=== PATIENT | male | born 1995 | race African-American/Black ===

== ENCOUNTER 2019-03-21 20:34 | Emergency (ER) | payer OTHER ==
--- NOTE | 2019-03-21 20:39 | ED Physician Documentation ---
History of Present Illness - Stated complaint Stated Complaint: NOSE INJURY - Additonal information Additional information: This is a 23-year-old male who denies past medical history who presents with nose pain. Patient was playing football and another player's cheekbone impacted his nose several hours ago. Patient had some bleeding from the left side, he went home and tried to clean his nose and said he could feel the cartilage moving around, so he presented here for further evaluation. He denies any loss of consciousness, facial pain other than on his nose, vision changes, or neck pain. Review of Systems Constitutional: denies: Fever Eyes: denies: Loss of vision Nose: reports: Epistaxis Throat: denies: Sore throat PD PAST MEDICAL HISTORY - Past Medical History Past Medical History: No - Present Medications Home Medications: Ambulatory Orders Medication Instructions Recorded Confirmed Acetaminophen [Tylenol] 650 mg PO Q6H PRN #30 tab 03/21/19 Ibuprofen 600 mg PO Q6H PRN #30 tablet 03/21/19 - Allergies Allergies/Adverse Reactions: Allergies Allergy/AdvReac Type Severity Reaction Status Date / Time clindamycin AdvReac Anaphylaxis Verified 03/21/19 20:40 - Living Situation Living Arrangement: reports: At home - Family History Family history: reports: Non contributory PD ED PE NORMAL - Vitals Vital signs reviewed: Yes - General General: Alert and oriented X 3, No acute distress - HEENT HEENT: PERRL, Other (Mild symmetric nasal swelling and distal nose tenderness. No gross deformity. No nasal septal hematoma. No active bleeding. No facial tenderness with palpation of the maxilla, zygoma, forehead, jaw. ) - Neck Neck: Supple, no meningeal sign - Cardiac Cardiac: RRR - Respiratory Respiratory: No respiratory distress - Abdomen Abdomen: Non distended - Derm Derm: Warm and dry - Extremities Extremities: No deformity - Neuro Neuro: Alert and oriented X 3 - Psych Psych: Normal mood, Normal affect Results - Vitals Vitals: Vital Signs - 24 hr 03/21/19 03/21/19 20:35 21:28 Temperature 37.3 C 36.9 C Heart Rate 60 61 Respiratory 17 16 Rate Blood Pressure 133/109 H 122/65 O2 Saturation 100 98 Oxygen O2 Source Room air - Rads (name of study) Nasal XR Radiology: Other (Distal nasal bone fracture.) PD MEDICAL DECISION MAKING - ED course Complexity details: considered differential (Nasal fracture, epistaxis, soft tissue injury, facial fracture, concussion) ED course: Patient presents with isolated trauma to his nose, he has no loss of consciousness, no signs of other significant trauma to his head or neck, he does not require head or neck imaging today. He is face is stable, with no tenderness around the orbits, midface, or jaw, he has isolated mid-distal nasal tenderness. Nasal x-ray shows a 2 mm distal nasal fracture fragment. I discussed the diagnosis of nasal fracture with the patient, and care for it with ice, and avoiding trauma. I provided him contact information for our facial surgeon Dr. Gamboa, I explained that I also think it would be reasonable for him to follow-up with just his primary care provider to start given the mildness of this fracture. I reviewed return precautions including any recurrent/persistent epistaxis. He has no signs of concussion or significant head injury. There are no signs of nasal septal hematoma. Patient's questions were answered and he was discharged home. Departure - Departure Disposition: 01 Home, Self Care Clinical Impression: Nasal bone fracture Qualifiers: Encounter type: initial encounter Fracture type: closed Qualified Code(s): S02.2XXA - Fracture of nasal bones, initial encounter for closed fracture Condition: Good Instructions: ED Fx Nasal Conf W X Ray Follow-Up: Jericho Gamboa DDS [Provider Admit Priv/Credential] - As Needed Prescriptions: Acetaminophen [Tylenol] 650 mg PO Q6H PRN #30 tab PRN Reason: Pain Ibuprofen 600 mg PO Q6H PRN #30 tablet PRN Reason: Pain Comments: You were seen today for nose pain, and you do have a small fracture of your nasal bone. This will likely heal without issue. You may apply ice to it, and please avoid further trauma to the nose. Please follow-up with your primary care provider. I have also provided the information for a facial surgeon for follow up if needed. Return to emergency department if you develop a persistent nosebleed that does not stop with direct pressure, or other concerning symptoms. Discharge Date/Time: 03/21/19 21:45
[2019-03-21] MEDS ORDERED: IBUPROFEN 600 MG TABLET PO STA (20:50)
[2019-03-21] MEDS ORDERED: ACETAMINOPHEN 325 MG TABLET PO STA (20:50)
[2019-03-21 21:30] VITALS: BP 122/65
--- NOTE | 2019-03-21 21:46 | XRAY Report ---
Reason: came in contact w/ another player, injuring nose.. Procedure Date: 03/21/2019 Accession Number: [id number] / [id number] Procedure: XR - Nasal Bones CPT Code: FULL RESULT: EXAM: NASAL BONES RADIOGRAPHY EXAM DATE: 03/21/2019 09:08 PM. CLINICAL HISTORY: Came in contact with another player, injuring nose. COMPARISONS: None. TECHNIQUE: 3 views. FINDINGS: Bones: There is a 2 mm fracture at the very tip of the nasal bone. The anterior nasal spine is intact. Sinuses: Normal. No opacities or fluid levels. Other: Normal. No soft tissue swelling. IMPRESSION: 2 mm tip of nasal bone fracture fragment. RADIA
== END 2019-03-21 21:45 | disposition home or self-care (01) ==
LOC: ED 20:34
DX: S02.2XXA Fracture of nasal bones, initial encounter for closed fracture (principal); W50.0XXA Accidental hit or strike by another person, initial encounter; Y93.62 Activity, american flag or touch football
CPT/HCPCS: 70160; 99283; 99284; A9270

== ENCOUNTER 2020-12-14 14:35 | Outpatient (CLI) | payer OTHER ==
[2020-12-14 16:26] VITALS: BP 130/80
--- NOTE | 2020-12-14 16:26 | SLEEP CARE CONSULTATION ---
Information from patient questionnaire entered by Peyton Lorenzo. I have reviewed and concur with the information entered by Peyton Lorenzo. This document represents the service I personally performed and the decisions made by me, Diane Riddle MD, [facility] - [place]. History of Present Illness Service Date and Time: 12/14/2020 1435 Reason for Visit: New patient Chief Complaint: reports: Insomnia, Snoring, Observed pauses in breathing, Frequent awakenings at night Date of Onset: 4 years Usual bedtime: 11:40pm Time it takes to fall asleep: 45 minutes Snores at night: Yes Observed to quit breathing while asleep: Yes Sleeps alone due to snoring: Yes Number of times waking at night: 3-4 Reasons for waking at night: reports: Snoring, Gasping for air, Bathroom, Other (numbness behind head, headaches, dreams) Toss, Turn, or Twitch while sleeping: Yes Recalls having dreams: Yes Usually gets out of bed at: 6 - 6:30 am Feels refreshed in the morning: Yes (sometimes) Morning headache: Yes (resolves in 1-2 hours) Sleepy or fatigued during the day: Yes (sometimes) Ever fallen asleep while driving: Yes (sometimes) Takes day naps: Yes (sometimes) Dreams during day naps: Yes Prior sleep studies: No Additional HPI information: I had the pleasure of seeing Mr. Yepez today regarding the possibility of him having a sleep disorder. As you know, he is a 25 year old gentleman who complains of frequent awakenings, loud snore, and observed apneas. The patient tells me that he normally goes to bed around 11:40 pm, and it takes him approximately 45 minutes to fall asleep. He has been told that he snores loudly and irregularly at night. He has also been observed to stop breathing in his sleep. His has to sleep in a separate room. On the average he wakes up 3 4 times a night. Most of the time he wakes up because of having to use the bathroom. He has awakened occasionally because of his own snoring, choking, and having to gasp for air. There is a lot of tossing and turning in his sleep. He has somniloquy (sleep talking) but not somnambulism (sleep walking). Generally he can recall having dreams. In the morning he usually gets up out of the bed around 6 6:30 a.m. not feeling refreshed nor rested. He usually does have a morning headache lasting 1 2 hours. During the day he complains of feeling sleepy and fatigued. His score on [place] Sleepiness Scale is 13 out of 24. He has fallen asleep while driving and has gone out of the ftio. He usually does not take naps during the day. He has had sleep paralysis. He complains of res tless leg syndrome. He reports having impaired concentration during the day. - Parasomnia Symptoms Ever been unable to move upon waking from sleep: Yes (most times) Walks in sleep: No Talks in sleep: Yes (sometimes) Ever acted out dreams in sleep: Yes Ever felt weak in the knees when startled or emotional: No Bothered by creepy, crawly, restless sensations in legs: Yes Problems with memory or concentration: Yes Subjective Initial [place] Sleepiness Scale score: 13 (in 2020) Social History The patient's occupation is a Active . Patient is Single and lives in [place]. Have you smoked in the past 12 months: No Alcohol use: No Caffeine use: Yes Caffeine amount and frequency: 1-2 drinks 5 days a week Family History Family history of sleep disordered breathing: Yes Family Hx Sleep Apnea: Mother: Snoring, Father: Snoring, Sibling: Snoring, Grandparent: Snoring Allergies and Home Medications Drug allergies reviewed: Yes Home medication list reviewed: Yes Review of Systems Weight gain over past 5 years: 22 Cardiovascular: reports: leg or foot swelling Respiratory: denies: shortness of breath, wheeze, sputum production, chronic cough, other Gastrointestinal: denies: heartburn, difficulty swallowing, nausea, vomitting, diarrhea, abdominal pain, other Urinary: reports: frequency Neurological: reports: headaches Psychiatric: denies: Attention Deficit Hyperactivity, anxiety, depression, mood disorder, claustrophobia, other Ear/Nose/Throat: reports: nasal congestion, sinus problems, dry mouth/throat, injury to nose, wisdom teeth removed Endocrine: reports: too hot or cold Musculoskeletal: reports: joint pain, neck pain, back pain Immunologic: reports: sneezing, allergies to food or environment Physical Exam Vital signs obtained and entered by: Dr. Nikomborirak Blood Pressure: 130/80 Cuff size: regular Heart Rate: 52 O2 Saturation: 97 Height: 6 ft Weight: 220 lb Body Mass Index: 29.8 BMI Classification: Overweight Neck circumference: 16 Mood/affect: normal HEENT: No craniofacial malformation Nostrils: partially obstructed Turbinates: normal Septum: deviated right Mouth and throat: narrow oropharynx Soft palate: long Hard palate: normal Uvula: normal Uvula visualization: 25% Mallampati Class III Tongue: normal in size Tonsils: small Chin and jaw: normal size and position Neck: normal w/o lymphadenopathy or thyromegaly Heart: regular rate and rhythm Lungs: clear bilaterally Abdomen: soft Extremities: no edema or clubbing Neurologic: intact Impression and Plan IMPRESSION: 1. Obstructive Sleep Apnea-Hypopnea Syndrome, as suggested by history of loud and irregular snoring, observed cessation of breath while asleep, frequent awakenings during the night, nocturnal choking, unrefreshed sleep, cognitive impairment, and daytime hypersomnolence. Narrow oropharynx and obesity are common predisposing factors for obstructive sleep apnea-hypopnea syndrome. I recommend proceeding to polysomnography to confirm the diagnosis and to assess severity. If he has significant sleep disordered breathing, a manual CPAP titration study will also be performed to find the optimal treatment pressure. I informed the patient of what the sleep studies involve and after some discussion, he agreed to proceed. Plan: 1. Schedule polysomnography + manual CPAP titration study and return in 1 to 2 weeks after the study to discuss result and initiate therapy. 2. Avoid long distance driving or when feeling sleepy. 3. Avoid alcohol, sedative and muscle relaxant around bedtime. 4. Attempt to lose some weight. Visit Type: In Office Time Spent with Patient (minutes): 15 Provider Statement: I spent 100% of the Face to Face Visit with the patient with greater than 50% spent counseling the patient and coordination of care.
== END 2020-12-14 14:36 | disposition home or self-care (01) ==
LOC: SC 14:35
PROVIDERS: ATTEND Internal Medicine Pulmonary Disease
DX: R06.83 Snoring (principal); R06.81 Apnea, not elsewhere classified; R41.89 Other symptoms and signs involving cognitive functions and awareness; G47.8 Other sleep disorders; G47.10 Hypersomnia, unspecified; E66.3 Overweight; Z68.29 Body mass index [BMI] 29.0-29.9, adult
CPT/HCPCS: 99202; 99212

== ENCOUNTER 2021-03-11 15:04 | Outpatient (CLI) | payer OTHER | END 2021-03-11 15:05 | disposition home or self-care (01) | LOC: SC 15:04 | PROVIDERS: ATTEND Internal Medicine Pulmonary Disease | DX: R06.83 Snoring (principal); R06.81 Apnea, not elsewhere classified; G47.8 Other sleep disorders; G47.10 Hypersomnia, unspecified; R41.89 Other symptoms and signs involving cognitive functions and awareness | CPT/HCPCS: 95806 ==

== ENCOUNTER 2021-03-18 08:55 | Outpatient (CLI) | payer OTHER ==
--- NOTE | 2021-03-18 09:11 | SLEEP CARE CONSULTATION ---
Information from patient questionnaire entered by Grace Soto. I have reviewed and concur with the information entered by Grace Soto. This document represents the service I personally performed and the decisions made by , Aleyda Cotton ARNP. History of Present Illness Service Date and Time: 03/18/2021 0900 Initial [place] Sleepiness Scale score: 13 (in 2020) Current [place] Sleepiness Scale score: 6 Additional HPI information: ROSY LIN returns via Video Telehealth visit for follow up and results of the recently performed home sleep study. The patient was informed of the following findings: No significant sleep diso rdered breathing with an average AHI of 3.0 and conor oxygen saturation of 87%. I explained the pathophysiology behind obstructive sleep apnea. Patient does not have sleep apnea and was advised how weight gain could increase the risk of developing sleep apnea in the future. I strongly encouraged the patient to lose weight. Patient has snoring. Snoring can be reduced by weight loss. Weight loss is best achieved with diet consult. Patient instructed to contact PCP for referral. Snoring can also be treated with an oral appliance from a dentist. Advised to check insurance coverage. In addition, an ENT evaluation can be do to see if other treatment is indicated. Patient does not drink alcohol. Patient was cautioned about risks of drowsy driving until sleepiness symptoms resolve. Sleep Study - Results Type of Sleep Study: Home sleep study Prior sleep studies: Yes Year and Where: 02/2021 [facility] Polysomnography/Home Sleep Study results: Physician Impression: The quality of the study is good. The length of the study is adequate (> 240 minutes). Please also see the tabulated and graphic data. 1. No significant sleep disordered breathing, with an AHI of 3.0/hr and conor SaO2 of 87%. During the study, the patient had 10 apneas (10 obstructive, 0 central, 0 mixed) and 10 hypopneas. The longest episode lasted 86.0 seconds. The few respiratory events occurred independently of body position (supine AHI was 3.6 and non-supine, 2.71). 2. Hypoxemia (ICD-10 R09.02), minimal, with the lowest oxygen saturation of 87 % and 2.1 minutes with SaO2 under 90%. Baseline oxygen saturation was normal (Average oxygen saturation was 94%). Allergies and Home Medications Home medication list reviewed: Yes (oxycodone for pain after surgery) Review of Systems Review of systems same as previous: No (nose surgery on 03-15-21) Physical Exam Vital signs obtained and entered by: Telehealth visit to reduce exposure during covid pandemic Height: 6 ft Impression and Plan 1. Suspected Obstructive Sleep Apnea-Hypopnea Syndrome, as suggested by a history of loud and irregular snoring, observed cessation of breath while asleep, gasping or choking in sleep, morning headache, frequent awakening during the night, unrefreshed sleep, cognitive impairment, and excessive daytime sleepiness. Patient completed home study but felt he did not sleep normally that night. His symptoms are consistent with possible sleep apnea so I recommend proceeding to polysomnography to confirm the diagnosis and to assess severity. I obtained agreement to proceed. The pathophysiology of obstructive sleep apnea- hypopnea syndrome was discussed with the patient and health risks of cardiovascular and cerebrovascular disease if not treated. 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 Patient agreed to plan. * Schedule polysomnography +- manual CPAP titration study and return in 1-2 weeks after the study to discuss result and initiate therapy. * Avoid long distance driving or driving when feeling sleepy. * Avoid alcohol, sedative and muscle relaxant around bedtime. * Attempt to lose weight. * Review instructions provided by trained office staff on how to prepare for the sleep study. * Return for follow-up after sleep study completed. Counseling Topics: Weight loss health impact Visit Type: Telehealth Video Video Type: VSee Patient Location: Home Location of Provider: Office Patient agrees and consents to this telehealth visit type: Yes Patient agrees to have their insurance billed: Yes Time Spent with Patient (minutes): 11 Provider Statement: I spent 100% of the Telehealth Video Call with the patient with greater than 50% spent counseling the patient and coordination of care.
== END 2021-03-18 08:56 | disposition home or self-care (01) ==
LOC: SC 08:55
PROVIDERS: ATTEND Nurse Practitioner Family
DX: R06.83 Snoring (principal); G47.8 Other sleep disorders; R06.81 Apnea, not elsewhere classified; G47.10 Hypersomnia, unspecified

== ENCOUNTER 2022-04-15 09:14 | Outpatient (CLI) | payer OTHER ==
--- NOTE | 2022-04-15 14:37 | MRI Report ---
PROCEDURE: KNEE WO - RT INDICATIONS: TECHNIQUE: Noncontrast sagittal PD fast spin echo and T2 fast spin echo with fat saturation, sagittal 3-D gradie nt sequence with fat saturation; coronal T1 spin echo and PD fast spin echo with fat saturation, and axial PD fast spin echo with fat saturation through the knee. COMPARISON: None. FINDINGS: Image quality: Excellent. Menisci: There is horizontal tear in the peripheral aspect of the posterior horn the medial meniscus. The lateral meniscus demonstrates normal morphology and internal signal. The meniscal root ligament s appear intact. Cruciate ligaments: Mild mucoid degeneration of the anterior cruciate ligament. The posterior crucia te ligament is intact. Medial structures: The medial collateral ligament appears intact. The semimembranosus tendon insert ions and meniscocapsular junction appear intact. Visualized portions of the pes anserinus tendons ap pear normal. There is pes anserinus bursal fluid consistent with bursitis. Lateral structures: The lateral collateral ligament and the biceps femoris tendon appear intact. Th e popliteus tendon appears normal. Iliotibial band appears normal. Anterior structures: The quadriceps and patellar tendons appear intact. Patellar alignment is david l. No femoral trochlear dysplasia or ventral trochlear prominence. No edema in the infrapatellar fa t pad. Bones and cartilage: No bone marrow contusions or fractures. Mild tricompartmental cartilage thinnin g and fibrillation. There is a 2.3 x 1.9 cm intramedullary mass in the proximal tibial metaphysis, d emonstrating signal carries a 6 consistent with chondroid matrix, most likely an enchondroma. Joint space: There is small knee joint effusion. No Morales's cyst. Normal appearing synovial plicae are incidentally noted. IMPRESSION: 1. Horizontal tear of the peripheral aspect of the posterior horn of the medial meniscus. 2. Mild mucoid degeneration of ACL. 3. Pes pes anserinus bursitis. 4. Mild tricompartmental cartilage thinning and fibrillation. 5 A 2.3 x 1.9 cm intramedullary mass with chondroid matrix, most likely an enchondroma. Recommend a 2 -view x-ray of the tibia for further evaluation. Reviewed by: Iggy Khanna MD on 04/15/2022 2:35 PM PDT Approved by: Iggy Khanna MD on 04/15/2022 2:35 PM PDT Station ID: [id number]
== END 2022-04-15 09:15 | disposition home or self-care (01) ==
LOC: DI 09:14
PROVIDERS: ATTEND Physician Assistant
DX: S83.241A Other tear of medial meniscus, current injury, right knee, initial encounter (principal); M23.8X1 Other internal derangements of right knee; M70.51 Other bursitis of knee, right knee; M94.261 Chondromalacia, right knee; R22.41 Localized swelling, mass and lump, right lower limb

== ENCOUNTER 2022-04-15 09:15 | Outpatient (CLI) | payer OTHER ==
--- NOTE | 2022-04-15 14:20 | MRI Report ---
PROCEDURE: KNEE WO - LT INDICATIONS: KNEE PAIN TECHNIQUE: Noncontrast sagittal PD fast spin echo and T2 fast spin echo with fat saturation, sagittal 3-D gradie nt sequence with fat saturation; coronal T1 spin echo and PD fast spin echo with fat saturation, and axial PD fast spin echo with fat saturation through the knee. COMPARISON: None. FINDINGS: Image quality: Excellent. Menisci: There is ramp tear involving the peripheral aspect of the posterior horn the medial meniscus . There is edema in the posterior medial joint capsule. The lateral meniscus demonstrates normal morp hology and internal signal. The meniscal root ligaments appear intact. Cruciate ligaments: The anterior cruciate ligament demonstrates striated appearance, likely secondar y to mucoid degeneration. The posterior cruciate ligament appears intact. Medial structures: The medial collateral ligament appears intact. The semimembranosus tendon insert ions and meniscocapsular junction appear intact. Visualized portions of the pes anserinus tendons ap pear normal. No abnormal bursal fluid. Lateral structures: The lateral collateral ligament, long and short heads of the biceps femoris tend on appear intact. The popliteus tendon appears normal. Iliotibial band appears normal. Anterior structures: The quadriceps and patellar tendons appear intact. Mild quadriceps tendinitis. Patellar alignment is normal. No femoral trochlear dysplasia or ventral trochlear prominence. No e rigoberto in the infrapatellar fat pad. Bones and cartilage: No bone marrow contusions or fractures. There is tricompartmental cartilage thi nning and fibrillation, most pronounced in the medial femorotibial compartment. There is full-thickne ss cartilage defect in the weightbearing portion of the medial femoral condyle with associated reacti ve subchondral edema. Joint space: There is [id number]-rdizg knee joint effusion. There is an oval thickening consistent with cellulitis. No Morales's cyst. Thickening of synovial plicae. IMPRESSION: 1. Ramp tear of the posterior horn of the medial meniscus. There is edema in the posterior medial norbert nt capsule. 2. Mucoid degeneration of ACL. 3. Mild quadriceps tendinitis. 4. There is moderate to large knee joint effusion. There is synovial thickening consistent with synov itis. 5. Tricompartmental cartilage thinning and fibrillation, most pronounced in the medial femorotibial c ompartment. There is full-thickness cartilage defect in the weightbearing portion of the medial femor al condyle. Reviewed by: Iggy Khanna MD on 04/15/2022 2:19 PM PDT Approved by: Iggy Khanna MD on 04/15/2022 2:19 PM PDT Station ID: [id number]
== END 2022-04-15 09:16 | disposition home or self-care (01) ==
LOC: DI 09:15
PROVIDERS: ATTEND Physician Assistant
DX: S83.242A Other tear of medial meniscus, current injury, left knee, initial encounter (principal); M23.8X2 Other internal derangements of left knee; M76.892 Other specified enthesopathies of left lower limb, excluding foot; M25.462 Effusion, left knee; M94.262 Chondromalacia, left knee; S83.241A Other tear of medial meniscus, current injury, right knee, initial encounter; M23.8X1 Other internal derangements of right knee; M70.51 Other bursitis of knee, right knee; M94.261 Chondromalacia, right knee; R22.41 Localized swelling, mass and lump, right lower limb